=== PATIENT | female | born 1960 | race Caucasian/White ===

== ENCOUNTER → 2023-11-30 13:46 | Outpatient (REF) | payer BC, SELFPAY | LOC: WDC 13:46 | PROVIDERS: ATTENDING PHYSICIAN Family Medicine | DX: Z12.31 Encounter for screening mammogram for malignant neoplasm of breast (principal); M81.0 Age-related osteoporosis without current pathological fracture | CPT/HCPCS: 77063; 77067; 77080 ==

== ENCOUNTER → 2023-12-13 09:53 | Outpatient (REF) | payer OTHER, BC, SELFPAY | LOC: MRI 3T 09:53 | PROVIDERS: ATTENDING PHYSICIAN Obstetrics & Gynecology Gynecology; FAMILY PHYSICIAN Family Medicine | DX: D21.9 Benign neoplasm of connective and other soft tissue, unspecified (principal) | CPT/HCPCS: 72197; A9575 ==

== ENCOUNTER → 2024-12-01 11:03 | Outpatient (REF) | payer MEDICARE, BC, SELFPAY | LOC: WDC 11:03 | PROVIDERS: ATTENDING PHYSICIAN Family Medicine | DX: Z12.31 Encounter for screening mammogram for malignant neoplasm of breast (principal) | CPT/HCPCS: 77063; 77067 ==